=== PATIENT | female | born 1980 | race African-American/Black ===

== ENCOUNTER 2017-04-08 12:47 | Emergency (ER) | payer BC, OTHER ==
[~2017-04-08] VITALS: Ht 162.6 cm; Wt 80.0 kg
[2017-04-08 12:51] VITALS: Ht 162.6 cm; Wt 80.0 kg
[2017-04-08] MEDS ORDERED: SOD CHLORIDE 0.9% 500 ML IV STA (13:07)
[2017-04-08 13:28] LABS: BASOPHILS % 0.5 % (0.0-2.0); EOSINOPHILS # 0.2 10^3/ul (0.0-0.5); EOSINOPHILS % 2.3 % (0.0-7.0); HEMATOCRIT 40.5 % (37.0-47.0); HEMOGLOBIN 13.4 g/dl (12.0-16.0); LYMPHOCYTES # 2.3 10^3/ul (0.8-2.9); LYMPHOCYTES % 34.9 % (15.0-51.0); MEAN CORPUSCULAR HEMOGLOBIN 28.3 pg (29.0-33.0); MEAN CORPUSCULAR HGB CONC 33.1 g/dl (32.0-37.0); MEAN CORPUSCULAR VOLUME 85.6 fl (82.0-101.0); MEAN PLATELET VOLUME 11.9 fl (7.4-10.4); MONOCYTE # 0.5 10^3/ul (0.3-0.9); MONOCYTES % 7.9 % (0.0-11.0); NEUTROPHIL # 3.6 10^3/ul (1.6-7.5); NEUTROPHILS % 54.2 % (39.0-77.0); PLATELET COUNT 206 10^3/UL (140-415); RED BLOOD COUNT 4.73 10^6/ul (4.20-5.40); RED CELL DISTRIBUTION WIDTH 14.8 % (11.5-14.5); WHITE BLOOD COUNT 6.6 10^3/ul (4.8-10.8)
[2017-04-08 13:43] LABS: INR 1.03; PARTIAL THROMBOPLASTIN TIME 31.2 Sec (25.0-35.0); PROTIME 13.5 Sec (12.2-14.2); PT RATIO 1.1
[2017-04-08 13:46] LABS: ANION GAP 20 (8-16); BLOOD UREA NITROGEN 8 mg/dl (7-20); CALCIUM 9.9 mg/dl (8.4-10.2); CARBON DIOXIDE 22 mmol/L (21-31); CHLORIDE 106 mmol/L (97-110); CREATININE 0.77 mg/dl (0.44-1.00); GLUCOSE 91 mg/dl (70-220); POTASSIUM 3.7 mmol/L (3.5-5.1); SODIUM 144 mmol/L (135-144)
[2017-04-08 14:00] LABS: TROPONIN-I < 0.012 ng/ml (0.00-0.12)
--- NOTE | 2017-04-08 14:12 | RADRPT ---
PROCEDURE: XR Chest. CLINICAL INDICATION: chest pain TECHNIQUE: Single AP view of the chest were obtained COMPARISON: None FINDINGS: The heart and mediastinum are within normal limits. The pulmonary vasculature are unremarkable. The aorta is unremarkable. There is no lung consolidation, pleural effusion or pneumothorax. There i s no acute osseous abnormality. IMPRESSION: No acute disease. RPTAT: AA .Carlos Beasley MD, Date Time Electronically viewed and signed by .Carlos Beasley MD, on 04/08/2017 14:11 .J/
--- NOTE | 2017-04-08 14:18 | ERD ---
ER Documentation Chief Complaint Date/Time DATE: 04/08/17 TIME: 14:16 Chief Complaint sob , abd pain , muscle weakness , joint pain , night sweats HPI This is a 37-year-old female with a history of gastritis who presents to the emergency room for evaluation of abdominal cramping, muscle weakness, and mild shortness of breath. The patient does state that she went to a claim approver and had a "body scan which showed high toxins". The patient states that she does have "gastrointestinal issues". The patient states that today she was short of breath and had some abdominal cramping and came to the emergency room for evaluation of abdominal cramping, shortness of breath and generalized weakness. She denies any aggravating or relieving factors for symptoms ROS All systems reviewed and are negative except as per history of present illness. Medications Home Meds No Active Prescriptions or Reported Meds Allergies Allergies: Coded Allergies: Penicillins (Unverified Allergy, Unknown, 04/08/17) PMhx/Soc History of Surgery: Yes (laparoscopic removal of fibroids) Anesthesia Reaction: No Hx Neurological Disorder: No Hx Respiratory Disorders: No Hx Cardiac Disorders: No Hx Psychiatric Problems: No Hx Miscellaneous Medical Probl: Yes (dm) Hx Alcohol Use: No Hx Substance Use: No Hx Tobacco Use: No Smoking Status: Never smoker Physical Exam Vitals Vital Signs Date Time Temp Pulse Resp B/P Pulse Ox O2 Delivery O2 Flow Rate FiO2 04/08/17 12:51 98.6 76 18 139/71 99 Physical Exam INITIAL VITAL SIGNS: Reviewed by me GENERAL: The patient is well developed and appropriate for usual state of health in no apparent distress HEENT: Dry mucous membranes, pupils equal, round, and reactive to light. EOMI. There is no scleral icterus. NECK: C-spine is soft and supple, there is no meningismus. There is no cervical lymphadenopathy. LUNGS: Clear to auscultation bilaterally. There are no rales, wheezes or rhonchi. HEART: Regular rate and rhythm, no murmurs, clicks, rubs or gallops. ABDOMEN: Soft, non-tender, non-distended. There are bowel sounds in all four quadrants. No rebound or guarding. EXTREMITIES: There is no peripheral cyanosis or edema. No focal swelling or erythema. NEUROLOGICAL: The patient moves all four extremities with 5/5 strength. Cranial nerves II - XII are intact. Normal gait. Alert and oriented SKIN: There is no apparent rash or petechiae. HEME/LYMPHATIC: There is no evidence of excessive bruising or lymphedema. PSYCHIATRIC: The patient appears to be moderately anxious, tearful Result Diagram: 04/08/17 1320 04/08/17 1320 Results 24 hrs Laboratory Tests Test 04/08/17 13:20 White Blood Count 6.610^3/ul Red Blood Count 4.7310^6/ul Hemoglobin 13.4g/dl Hematocrit 40.5% Mean Corpuscular Volume 85.6fl Mean Corpuscular Hemoglobin 28.3pg Mean Corpuscular Hemoglobin Concent 33.1g/dl Red Cell Distribution Width 14.8% Platelet Count 44961^3/UL Mean Platelet Volume 11.9fl Neutrophils % 54.2% Lymphocytes % 34.9% Monocytes % 7.9% Eosinophils % 2.3% Basophils % 0.5% Nucleated Red Blood Cells % 0.0/100WBC Neutrophils # 3.610^3/ul Lymphocytes # 2.310^3/ul Monocytes # 0.510^3/ul Eosinophils # 0.210^3/ul Basophils # 0.010^3/ul Nucleated Red Blood Cells # 0.010^3/ul Prothrombin Time 13.5Sec Prothrombin Time Ratio 1.1 INR International Normalized Ratio 1.03 Activated Partial Thromboplast Time 31.2Sec Sodium Level 144mmol/L Potassium Level 3.7mmol/L Chloride Level 106mmol/L Carbon Dioxide Level 22mmol/L Anion Gap 20 Blood Urea Nitrogen 8mg/dl Creatinine 0.77mg/dl Glucose Level 91mg/dl Calcium Level 9.9mg/dl Troponin I < 0.012ng/ml Current Medications Medications (Trade) Dose Ordered Sig/Juan Francisco Route PRN Reason Start Time Stop Time Status Last Admin Dose Admin Sodium Chloride (NS) 500 ml @ 500 mls/hr Q1H STAT IV 04/08/17 13:07 04/08/17 14:06 DC 04/08/17 13:35 Procedures/MDM EKG: Rate/Rhythm: [Normal Sinus Rhythm] QRS, ST, T-waves: [No changes consistent w/ acute ischemia] Impression: [No evidence of ischemia or arrhythmia] Chest X-ray 1V Interpreted by me: Soft Tissue: No acute abnormalities Bones: No acute abnormalities Mediastinum/Cardiac Silhouette/Lungs: [No acute abnormalities] This 37-year-old female presents to the emergency room for evaluation of multiple complaints including shortness of breath, generalized weakness and abdominal cramping. 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 She is not on any PPI or histamine reza. I did obtain a cardiac workup on this patient including EKG which is nonischemic. Her chest x-ray is clear. The patient is nontoxic-appearing and hemodynamically stable. Her troponin is also negative and lab work is within normal limits. The patient was mildly anxious when I evaluated her and tearful. Upon my reevaluation after a 500 cc fluid bolus the patient states she is feeling much better. I have consult this patient verbally and have reviewed her lab work with her and she says she is feeling much better at this time. I do feel that she has a component of anxiety and possible dehydration to her complaint. The patient will be discharged at this time with instructions to return to the ER if she develops any chest pain shortness of breath and she verbalized understanding. Differential diagnoses entertained was broad with potential high acuity. Patient has been evaluated for acute myocardial infarction, unstable angina, aortic dissection, pulmonary embolism, other intrathoracic and cardiac concerns. Ultimately the patient's evaluation is nondiagnostic. Based on the patient's lack of risk factors, as well as the patient's clinical, laboratory, and imaging data, the patient appears to be low risk for these high risk causes of chest pain. Departure Diagnosis: Primary Impression: Shortness of breath Additional Impressions: Multiple complaints Generalized weakness Mild dehydration Anxiety Condition: Stable BALAJI WRIGHT DO Apr 08, 2017 14:18
[2017-04-08] MEDS ORDERED: RANI150T9 PO (14:19)
[2017-04-08 14:35] VITALS: BP 113/69; PULSE 72; RESP 18; TEMP 97.9
== END 2017-04-08 14:38 | disposition home or self-care (01) ==
LOC: E/R 12:47
DX: R06.02 Shortness of breath (principal); R53.1 Weakness; E86.0 Dehydration; F41.9 Anxiety disorder, unspecified; E11.9 Type 2 diabetes mellitus without complications
CPT/HCPCS: 36415; 71010; 80048; 84484; 85025; 85610; 85730; 93005; J7040; Z7502